=== PATIENT | male | born 1955 ===

== ENCOUNTER 2018-02-19 15:24 | Outpatient (CLI) | payer OTHER ==
--- NOTE | 2018-03-02 12:48 | Magnetic Resonance Report ---
MR scan of the cranium was performed without contrast. Pulse sequences included: 1. T1 weighted sagittal and axial images without contrast 2. T2 weighted axial and coronal images 3. FLAIR axial images 4. Diffusion-weighted axial images 5. Apparent diffusion coefficient images Views of the posterior fossa showed a normal craniocervical junction. Cerebellar pontine angles were normal with normal seventh-eighth nerve complexes. Brainstem showed white matter changes in the basis pontis. Cerebellum showed 2 small areas of increased signal in the left neocerebellum. The ventricular system showed no dilatation or distortion. Images of the hemispheres showed extensive white matter changes in the periventricular matter. There wer linear cysts adjacent to both lateral ventricles with the presence of hemosiderin on the left suggestive of an old hemorrhage. An area of increase signal was prominent on the right in the periventricular region suggestive of an old infarct. Multiple additional areas of increased signal were seen bilaterally also suggestive of infarcts. ADC images showed decreased perfusion in the cerebellum and the periventricular regions in these regions. Sinuses showed increased signal in both maxillary sinuses consistent with maxillary sinusitis.flow voids in the grand traverse of Evans, orbits, pituitary and basal ganglia were normal. Impression: Abnormal MR scan of the cranium without contrast. a. 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 left cerebellar infarcts c. 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
== END 2018-02-19 15:25 | disposition home or self-care (01) ==
LOC: MRI 15:24
PROVIDERS: ATTEND Specialist
DX: I63.30 Cerebral infarction due to thrombosis of unspecified cerebral artery (principal); J32.0 Chronic maxillary sinusitis
CPT/HCPCS: 70551